=== PATIENT | male | born 1965 | race American Indian/Alaskan Native ===

== ENCOUNTER 2017-11-07 09:35 | Outpatient (CLI) | payer OTHER ==
--- NOTE | 2017-11-07 16:33 | XRay Report ---
XRAY LUMBAR SPINE THREE VIEWS: 11/07/17 09:35:00 CLINICAL: Back pain. FINDINGS: Normal vertebral body height, alignment and disk spaces. The pedicles are intact. No fracture. Mild calcification of the abdominal aorta. IMPRESSION: Normal lumbar spine. Atherosclerotic disease of the aorta.
--- NOTE | 2017-11-07 16:35 | XRay Report ---
XRAY LEFT HIP THREE VIEWS: 11/07/17 09:35:00 CLINICAL: Left hip pain. FINDINGS: No fracture or dislocation. Moderate osteoarthritis with superolateral joint space narrowing and superior acetabular eburnation area and a small superolateral osteophytes. A small inferior femoral osteophyte. Similar but less osteoarthritis of the right hip. The pelvic bones are intact. The SI joints are normal. Normal soft tissues. Normal rectal gas. A rectosigmoid anastomosis. IMPRESSION: Osteoarthritis.
== END 2017-11-07 09:36 | disposition home or self-care (01) ==
LOC: XRAY 09:35
PROVIDERS: ATTEND Internal Medicine
DX: M16.12 Unilateral primary osteoarthritis, left hip (principal); I70.0 Atherosclerosis of aorta; M77.52 Other enthesopathy of left foot and ankle; M77.51 Other enthesopathy of right foot and ankle
CPT/HCPCS: 72100